=== PATIENT | female | born 2000 | race Caucasian/White ===

== ENCOUNTER 2020-05-21 06:19 | Inpatient (IN) | payer OTHER ==
[2020-05-21] VITALS (9 sets, daily range): BP systolic 118–142; BP diastolic 66–110
[~2020-05-21] VITALS: Ht 175.3 cm; Wt 157.0 kg
[~2020-05-21 06:19] MED LIST: MORPHINE SULFATE 4 MG/ML VIAL. IV PRN
[2020-05-21] MEDS: MORPHINE SULFATE 2 MG/ML VIAL. IV PRN ×7 (08:17→20:44)
[2020-05-21] MEDS: IV NORMAL SALINE 1000ML BAG 1,000 ML IV SCH ×2 (09:00→23:16)
[2020-05-21] MEDS ORDERED: MORPHINE SULFATE 2 MG/ML VIAL. IV PRN (09:00)
[2020-05-21] MEDS ORDERED: SENNOSIDES 8.6 MG TABLET PO PRN ×2 (09:00→12:45)
[2020-05-21] MEDS ORDERED: DEXTROSE 50% 25 GM / 50ML DISP.SYRIN. IV PRN ×2 (09:00→15:45)
[2020-05-21] MEDS ORDERED: ACETAMINOPHEN 325 MG TABLET. PO PRN (09:00)
[2020-05-21] MEDS ORDERED: DOCUSATE SODIUM 100 MG CAPSULE. PO PRN ×2 (09:00→12:45)
[2020-05-21] MEDS ORDERED: ONDANSETRON PF 4 MG/2 ML VIAL. IVP PRN ×3 (09:00→15:45)
[2020-05-21] MEDS ORDERED: ONDANSETRON PF 4 MG/2 ML VIAL. IV PRN (09:30)
[2020-05-21] MEDS ORDERED: LIDOCAINE 1% PF 2 ML VIAL. ID PRN (09:30)
[2020-05-21] MEDS ORDERED: IV RINGERS,LACTATED 1000ML 1,000 ML IV SCH (09:30)
[2020-05-21] MEDS ORDERED: HYDROmorphone 2 MG/ML VIAL IV PRN (09:30)
[2020-05-21] MEDS ORDERED: PROCHLORPERAZINE 10 MG/2 ML VIAL. IV PRN (09:30)
[2020-05-21] MEDS ORDERED: fentaNYL PF VIAL 100 MCG/2 ML VIAL IV PRN ×2 (09:30)
--- NOTE | 2020-05-21 12:41 | PDOC1 ---
History and Physical Date of Service: DOS: DATE: 05/21/20 TIME: 12:37 Chief Complaint: Chief Complain: Fall with ankle fracture History of Present Illness: HPI: 19-year-old female with no past medical history presents with a ankle fracture after a mechanical fall. Patient states that she was running towards her house and she ran up on the back porch and she slipped and fell sideways when her foot got caught on the side of the porch. The porch was made of wood. Denies any LOC. She states that she looked at her foot and it was deformed. There was no bone exposed or active bleeding. Peripheral pulses were intact. Pain is 10 out of 10 at this time. Denies fevers, chest pain, swelling, diarrhea or syncope. Past Medical/Surgical History: PMH/PSH: No pertinent past medical or surgical history Allergies: Allergies: Coded Allergies: No Known Drug Allergies (Unverified , 05/21/20) Family History: Family History: Reviewed with no relevant findings Social History: Social History: Denies alcohol, tobacco or drug abuse. Current Medications: Current Medications Current Medications Morphine Sulfate (Morphine Sulfate) 2 mg PRN Q2HR PRN IV PAIN Last administered on 05/21/20at 11:39; Start 05/21/20 at 08:00 Sennosides (Senna) 17.2 mg PRN BID PRN PO CONSTIPATION; Start 05/21/20 at 09:00 Docusate Sodium (Colace) 100 mg PRN DAILY PRN PO HARD STOOLS; Start 05/21/20 at 09:00 Ondansetron HCl (Zofran) 4 mg PRN Q6HRS PRN IVP NAUSEA/VOMITING; Start 05/21/20 at 09:00 Dextrose (Dextrose 50%-Water Syringe) 12.5 gm PRN Q15MIN PRN IV SEE COMMENTS; Start 05/21/20 at 09:00 Sodium Chloride 1,000 ml @ 100 mls/hr Q10H IV Last administered on 05/21/20at 09:00; Start 05/21/20 at 09:00 Acetaminophen (Tylenol) 650 mg PRN Q4HRS PRN PO TEMP OVER 100.4F OR MILD PAIN; Start 05/21/20 at 09:00 Enoxaparin Sodium (Lovenox 60mg Syringe) 60 mg Q12HR SQ ; Start 05/22/20 at 09:00 Morphine Sulfate (Morphine Sulfate) 1 mg PRN Q1HR PRN IV PAIN; Start 05/21/20 at 09:00 Morphine Sulfate (Morphine Sulfate) 2 mg PRN Q2HR PRN IV SEVERE PAIN 7-10; Start 05/21/20 at 04:00; Stop 05/22/20 at 03:59 Ondansetron HCl (Zofran) 4 mg PRN Q6HRS PRN IV NAUSEA/VOMITING; Start 05/21/20 at 09:30; Stop 05/22/20 at 09:29 Fentanyl Citrate (Fentanyl 2ml Vial) 25 mcg PRN Q5MIN PRN IV MILD PAIN 1-3; Start 05/21/20 at 09:30; Stop 05/22/20 at 09:29 Fentanyl Citrate (Fentanyl 2ml Vial) 50 mcg PRN Q5MIN PRN IV MODERATE TO SEVERE PAIN; Start 05/21/20 at 09:30; Stop 05/22/20 at 09:29 Morphine Sulfate (Morphine Sulfate) 1 mg PRN Q10MIN PRN IV SEVERE PAIN 7-10; Start 05/21/20 at 09:30; Stop 05/22/20 at 09:29 Ringer's Solution 1,000 ml @ 30 mls/hr Q24H IV ; Start 05/21/20 at 09:30; Stop 05/21/20 at 21:29 Lidocaine HCl (Xylocaine-Mpf 1% 2ml Vial) 2 ml PRN 1X PRN ID PRIOR TO IV START; Start 05/21/20 at 09:30; Stop 05/22/20 at 09:29 Hydromorphone HCl (Dilaudid) 0.5 mg PRN Q10MIN PRN IV SEV PAIN, Second choice; Start 05/21/20 at 09:30; Stop 05/22/20 at 09:29 Prochlorperazine Edisylate (Compazine) 5 mg PACU PRN PRN IV NAUSEA, MRX1; Start 05/21/20 at 09:30; Stop 05/22/20 at 09:29 ROS: Review of Systems Review of System REVIEW OF SYSTEMS: GENERAL: Denies weakness SKIN: No bruising, hair changes or rashes. EYES: No blurred, double or loss of vision. NOSE AND THROAT: No history of nosebleeds, hoarseness or sore throat. HEART: No history of palpitations, chest pain or shortness of breath on exertion. LUNGS: Denies cough, hemoptysis, wheezing or shortness of breath. GASTROINTESTINAL: Denies changes in appetite, nausea, vomiting, diarrhea or constipation. GENITOURINARY: No history of frequency, urgency, hesitancy or nocturia. NEUROLOGIC: Denies history of numbness, tingling, or tremor. PSYCHIATRIC: No history of panic, anxiety or depression. ENDOCRINE: No history of heat or cold intolerance, polyuria or polydipsia. EXTREMITIES: Denies joint pain, pain on walking or stiffness. Physical Exam: Vital Signs: Vital Signs Date Time Temp Pulse Resp B/P (MAP) Pulse Ox O2 Delivery O2 Flow Rate FiO2 05/21/20 11:39 20 94 Room Air 05/21/20 07:00 98.4 74 133/83 (100) 98.4 Physcial Exam: GEN: No apparent distress. Alert and oriented HEENT: Normal cephalic, atraumatic, external auditory canals are patent EYES: Extraocular muscles are intact, pupil are equally round and reactive to light and accommodation MUSCULOSKELETAL: Well developed , well nourished, good range of motion ENDOCRINE: No thyromegaly was palpated LYMPHATICS: No cervical chain or axillary nodes were noted HEMATOPOIETIC: No bruising NECK: Supple, no JVD, no thyromegaly was noted LUNGS: Clear to auscultation in all lung alvarez without rhonchi or wheezing HEART: RRR, S!, S2 present. Peripheral pulses intact, no obvious murmurs noted ABDOMEN: Soft, nontender. Positive bowel sounds, no organomegaly, normal bowel sounds EXTREMITIES: Without clubbing, cyanosis, or edema. Pedal pulses intact. Negative Homans sign NEUROLOGIC: Normal speech and tone. A&O x 3, moves all extremities, no obvious focal deficits PSYCHIATRIC: Normal affect, normal mood. Stable SKIN: No ulcerations or rashes, good skin turgor, no jaundice VASCULAR: Good capillary refill, neurovascular bundle appears to be intact Labs: Labs: Pending labs Images: Images Ankle x-ray results in the physical chart Assessment/Plan Assessment/Plan Mechanical fall with left ankle fracture Admit to medicine for further management IV pain control N.p.o. status Rapid Covid Orthopedic consult on-call to the OR for ORIF Lovenox for DVT prophylaxis N.p.o. Full code Discussed with RN and SW Disposition OR Ortho evaluation Surrogate decision maker is the parents Justifications for Admission Other Justification Ankle Fx PAO BAJWA MD May 21, 2020 12:41
[2020-05-21] MEDS ORDERED: fentaNYL PF VIAL 100 MCG/2 ML VIAL ONE ×2 (12:54→13:38)
[2020-05-21] MEDS: fentaNYL PF VIAL 100 MCG/2 ML VIAL IVP PRN ×2 (13:09→13:30)
[2020-05-21] MEDS ORDERED: ceFAZolin SODIUM IV Push 1 GM VIAL. IVP PRN (13:15)
[2020-05-21] MEDS ORDERED: PROPOFOL 10 MG/ML (20ML) VIAL. IV ONE (13:38)
[2020-05-21] MEDS ORDERED: LIDOCAINE 2% PF 5 ML VIAL. ONE (13:38)
[2020-05-21] MEDS ORDERED: LEVO1TAB PO (13:39)
[2020-05-21] MEDS ORDERED: DEXAMETHASONE SOD PHOS 4 MG/ML VIAL ONE (14:31)
[2020-05-21] MEDS ORDERED: ONDANSETRON PF 4 MG/2 ML VIAL. ONE (14:31)
[2020-05-21] MEDS ORDERED: SEVOFLURANE 31 TO 60 MINUTES. IH ONE (14:31)
--- NOTE | 2020-05-21 14:47 | CONS ---
DATE OF CONSULTATION: 05/21/2020 REQUESTING PHYSICIAN: Dr. Fabrice Huitron. REASON FOR CONSULTATION: Left ankle injury. HISTORY OF PRESENT ILLNESS: The patient is a 19-year-old female who fell on ice on her family's backpack and had immediate onset of pain and deformity to the left ankle. She is unable to bear weight and presented to [facility], was noted to have a fracture dislocation of the ankle and was admitted to [place] for further evaluation and treatment. PAST MEDICAL HISTORY: Denies any past medical history. PAST SURGICAL HISTORY: Significant for wisdom teeth removal. ALLERGIES: She has no known drug allergies. FAMILY HISTORY: Denies any significant family history. SOCIAL HISTORY: Denies any tobacco, alcohol or drug use. CURRENT MEDICATIONS: Current medications. REVIEW OF SYSTEMS: She denies any loss of consciousness, any head injury, headache, visual changes, focal weakness, numbness, tingling. Really, injury is only significant for the left ankle pain and deformity that is worse with any movement that has been better since splinted. PHYSICAL EXAMINATION: GENERAL: Pleasant, cooperative 19-year-old female, in no acute distress. HEENT: Atraumatic, normocephalic. MUSCULOSKELETAL: No tenderness on palpation over the neck or back. She has full range of motion of shoulder, elbow and wrist bilaterally with no instability or swelling or tenderness on palpation. Normal alignment, stability, bilateral hips and knees: Left ankle has obvious deformity, but it is swollen and splinted and she can wiggle her toes. Capillary refill distally is intact. She has normal examination of the contralateral right ankle. IMAGING: X-rays show a midshaft fibula fracture on the left and a grossly displaced syndesmotic injury with a lateral talar shift as well as a lateral shift of the distal fibula. IMPRESSION: Left distal fibular shaft fracture with syndesmotic disruption and ankle dislocation. TREATMENT PLAN: I went over with her and her family the normal anatomy of the ankle and the necessity of reestablishing the ankle joint mortise and getting the syndesmotic ligaments reopposed to allow them to heal. I told her that if that is possible with acceptable reduction of the fibular shaft fracture, I would let that heal on its own. If not and it remains now reduced or unstable despite this syndesmotic fixation, we may need to undergo some fixation of the fibula shaft as well. We talked about long-term injury to the ankle and some instability of premature degenerative changes and continued pain or stiffness even under the best of circumstances, surgical complications of possible infection, nonhealing, nerve or blood vessel damage, medical or other anesthetic complications among others and the expected activity restrictions postoperatively. All her questions were answered. She wishes to proceed with surgical evaluation and treatment, which will occur today pending operating room availability. GINA MILLER MD DR: GILBERTO/litzy JOB#: [id number] / [id number]
[2020-05-21] MEDS ORDERED: BUPIVACAINE MPF 0.5% 30 ML VIAL. ONE (14:56)
[2020-05-21] MEDS ORDERED: MORPHINE SULFATE 2 MG/ML VIAL. IVP PRN (15:45)
[2020-05-21] MEDS ORDERED: HYDROcodone/APAP 7.5/325MG 1 TAB TABLET PO PRN (15:45)
[2020-05-21] MEDS ORDERED: fentaNYL PF VIAL 100 MCG/2 ML VIAL IVP PRN (15:45)
[2020-05-21] MEDS ORDERED: POLYETHYLENE GLYCOL 3350 17 GM PACKET. PO PRN (15:45)
[2020-05-21] MEDS ORDERED: oxyCODONE IR 5 MG TABLET PO PRN (15:45)
[2020-05-21] MEDS ORDERED: MORPHINE SULFATE 2 MG/ML VIAL. ONE (15:52)
--- NOTE | 2020-05-21 16:00 | PDOC4 ---
Operative Note Operative Note Date of surgery: 05/21/2020 Preoperative diagnosis: Left ankle subluxation with syndesmotic injury and midshaft fibula fracture Postoperative diagnosis: Same Operative procedure: Operative reduction and fixation of syndesmotic injury left ankle with reduction of midshaft fibula fracture Surgeon: James Anesthesia: General Estimated blood loss: 5 cc Complications: None Operative indications: Please see my dictated orthopedic consultation for detailed operative indications and note that we covered the risks benefits postoperative course of the procedure including possibility of infection nerve or blood vessel damage instability stiffness pain medical or other anesthetic complications among others and we also covered the possibility of fixation of the fibular shaft fracture if necessary she agrees to proceed with surgical evaluation and treatment having given informed consent Operative text: Patient was identified procedure verified patient placed in supine position on the operating table. After adequate amounts of general anesthesia were administered the left lower extremity was prepped and draped in standard sterile fashion with a thigh tourniquet. After timeout was performed patient procedure identified and verified the left lower extremity was exsanguinated by Esmarch bandage tourniquet inflated to 250 mmHg. After checking reduction under fluoroscopic guidance under multiple fluoroscopic views with the ankle joint held reduced and the syndesmosis reduced, the fibular shaft fracture was actually satisfactorily aligned and showed good contact. A small incision was made localized by fluoroscopic guidance and with the syndesmosis and ankle mortise joint held reduced per fluoroscopic guidance a 3.5 mm drill bit was advanced from the distal fibula across the syndesmosis and through the medial tibia and a zip tight ankle syndesmosis Biomet fixation stainless steel implant was used and the implant was flipped after traversing the tibia and verified to be seated well under fluoroscopic guidance and the implant was cinched down with the syndesmosis held in reduction and ankle joint mortise noted to be anatomically reduced under mortise AP and lateral views. Likewise the fibular shaft fracture noted to be in satisfactory alignment and contact. Closure accomplished with subcutaneous Vicryl subcuticular Monocryl Steri-Strips and Mastisol Xeroform was placed over the medial aspect of the ankle where she had some blistering due to tension on the medial skin. A well-padded posterior splint was then placed over sterile dressings toes were noted be warm pink following deflation of the tourniquet patient was returned to recovery room in stable condition having tolerated procedure well GINA MILLER MD May 21, 2020 16:00
[2020-05-21] MEDS: ceFAZolin SODIUM IV Push 1 GM VIAL. IVP SCH (20:48)
[2020-05-21] MEDS: traMADol 50 MG TABLET PO PRN (23:16)
[2020-05-22] MEDS: ceFAZolin SODIUM IV Push 1 GM VIAL. IVP SCH ×2 (02:21→09:42)
[2020-05-22 02:23] VITALS: BP 120/57
[2020-05-22] MEDS: IV NORMAL SALINE 1000ML BAG 1,000 ML IV SCH (05:00)
[2020-05-22] MEDS ORDERED: MAGNESIUM HYDROXIDE 2,400 MG/30 ML ORAL.SUSP. PO PRN (06:00)
[2020-05-22 07:00] VITALS: BP 108/70
[2020-05-22] MEDS: traMADol 50 MG TABLET PO PRN (07:34)
[2020-05-22] MEDS ORDERED: SENNOSIDES/DOCUSATE 8.6/50MG TABLET. PO SCH (09:00)
[2020-05-22 09:40] LABS: BASO % 0 % (0-3); EOS % 0 % (0-3); HEMATOCRIT 35.8 % (36.0-47.0); HEMOGLOBIN 12.2 g/dL (12.0-15.5); LYMPH # 1.4 x10^3/uL (1.0-4.8); LYMPH % 15 % (24-48); MEAN CORPUSCULAR HEMOGLOBIN 31 pg (25-35); MEAN CORPUSCULAR HGB CONC 34 g/dL (31-37); MEAN CORPUSCULAR VOLUME 91 fL (79-100); MONO # 0.7 x10^3/uL (0.0-1.1); MONO % 8 % (0-9); NEUT # 6.8 x10^3/uL (1.8-7.7); NEUT % 76 % (31-73); PLATELET COUNT 273 x10^3/uL (140-400); RED BLOOD COUNT 3.94 x10^6/uL (3.50-5.40); RED CELL DISTRIBUTION WIDTH 12.8 % (11.5-14.5); WHITE BLOOD COUNT 8.9 x10^3/uL (4.0-11.0)
[2020-05-22 09:57] LABS: CALCIUM 9.3 mg/dL (8.5-10.1); GFR 70.7; MAGNESIUM 2.1 mg/dL (1.8-2.4); PHOSPHORUS 3.8 mg/dL (2.6-4.7); POTASSIUM 3.7 mmol/L (3.5-5.1)
--- NOTE | 2020-05-22 10:30 | PDOC ---
PROGRESS NOTES Date of Service DATE: 05/22/20 TIME: 10:28 Subjective Subjective Problems overnight: Left leg and ankle are sore no other complaints Objective Vital Signs Vital Signs Date Time Temp Pulse Resp B/P (MAP) Pulse Ox O2 Delivery O2 Flow Rate FiO2 05/22/20 09:00 19 94 Room Air 05/22/20 07:00 98.5 75 108/70 (83) 98.5 05/21/20 16:13 2.0 Physical Exam Distal capillary refill sensation motor function are all intact normal stability and motion of knee and hip Labs Laboratory Tests Test 05/21/20 08:30 05/21/20 09:05 05/22/20 08:20 SARS-CoV-2 Antigen (Rapid) Negative (NEGATIVE) Coronavirus (PCR) Not detected (Not Detected) White Blood Count 8.9 x10^3/uL (4.0-11.0) Red Blood Count 3.94 x10^6/uL (3.50-5.40) Hemoglobin 12.2 g/dL (12.0-15.5) Hematocrit 35.8 % (36.0-47.0) Mean Corpuscular Volume 91 fL (79-100) Mean Corpuscular Hemoglobin 31 pg (25-35) Mean Corpuscular Hemoglobin Concent 34 g/dL (31-37) Red Cell Distribution Width 12.8 % (11.5-14.5) Platelet Count 273 x10^3/uL (140-400) Neutrophils (%) (Auto) 76 % (31-73) Lymphocytes (%) (Auto) 15 % (24-48) Monocytes (%) (Auto) 8 % (0-9) Eosinophils (%) (Auto) 0 % (0-3) Basophils (%) (Auto) 0 % (0-3) Neutrophils # (Auto) 6.8 x10^3/uL (1.8-7.7) Lymphocytes # (Auto) 1.4 x10^3/uL (1.0-4.8) Monocytes # (Auto) 0.7 x10^3/uL (0.0-1.1) Eosinophils # (Auto) 0.0 x10^3/uL (0.0-0.7) Basophils # (Auto) 0.0 x10^3/uL (0.0-0.2) Sodium Level 142 mmol/L (136-145) Potassium Level 3.7 mmol/L (3.5-5.1) Chloride Level 103 mmol/L (98-107) Carbon Dioxide Level 29 mmol/L (21-32) Anion Gap 10 (6-14) Blood Urea Nitrogen 9 mg/dL (7-20) Creatinine 1.0 mg/dL (0.6-1.0) Estimated GFR (Cockcroft-Gault) 70.7 Glucose Level 100 mg/dL (70-99) Calcium Level 9.3 mg/dL (8.5-10.1) Phosphorus Level 3.8 mg/dL (2.6-4.7) Magnesium Level 2.1 mg/dL (1.8-2.4) Laboratory Tests Test 05/22/20 08:20 White Blood Count 8.9 x10^3/uL (4.0-11.0) Red Blood Count 3.94 x10^6/uL (3.50-5.40) Hemoglobin 12.2 g/dL (12.0-15.5) Hematocrit 35.8 % (36.0-47.0) Mean Corpuscular Volume 91 fL (79-100) Mean Corpuscular Hemoglobin 31 pg (25-35) Mean Corpuscular Hemoglobin Concent 34 g/dL (31-37) Red Cell Distribution Width 12.8 % (11.5-14.5) Platelet Count 273 x10^3/uL (140-400) Neutrophils (%) (Auto) 76 % (31-73) Lymphocytes (%) (Auto) 15 % (24-48) Monocytes (%) (Auto) 8 % (0-9) Eosinophils (%) (Auto) 0 % (0-3) Basophils (%) (Auto) 0 % (0-3) Neutrophils # (Auto) 6.8 x10^3/uL (1.8-7.7) Lymphocytes # (Auto) 1.4 x10^3/uL (1.0-4.8) Monocytes # (Auto) 0.7 x10^3/uL (0.0-1.1) Eosinophils # (Auto) 0.0 x10^3/uL (0.0-0.7) Basophils # (Auto) 0.0 x10^3/uL (0.0-0.2) Sodium Level 142 mmol/L (136-145) Potassium Level 3.7 mmol/L (3.5-5.1) Chloride Level 103 mmol/L (98-107) Carbon Dioxide Level 29 mmol/L (21-32) Anion Gap 10 (6-14) Blood Urea Nitrogen 9 mg/dL (7-20) Creatinine 1.0 mg/dL (0.6-1.0) Estimated GFR (Cockcroft-Gault) 70.7 Glucose Level 100 mg/dL (70-99) Calcium Level 9.3 mg/dL (8.5-10.1) Phosphorus Level 3.8 mg/dL (2.6-4.7) Magnesium Level 2.1 mg/dL (1.8-2.4) Imaging Intraoperative imaging shows anatomic ankle joint mortise reduction with syndesmotic repair and satisfactory fibula midshaft fracture alignment Assessment Assessment POD#1 left ankle syndesmotic repair and reduction fibular shaft fracture Plan Plan of Care She is to remain nonweightbearing mobilize with physical therapy today follow-up in about 10 days with orthopedics and pending good pain control and getting around safely is otherwise stable for discharge from an orthopedic standpoint Justicifation of Admission Dx: Justifications for Admission: Justification of Admission Dx: N/A GINA MILLER MD May 22, 2020 10:30
--- NOTE | 2020-05-22 10:52 | DISCH ---
DISCHARGE INSTRUCTIONS Condition on Discharge Condition on Discharge: Stable Activity After Discharge Activity Instructions for Disc: Resume previous activity Weight Bearing Status after Di: Non weight bearing (On left ankle) Diet after Discharge Diet after Discharge: Regular Contacting the DR. after DC Call your doctor for: If your condition worsens Follow-Up Follow up with: PCP within 2 weeks of discharge Follow Up With: Orthopedics within 10 days of discharge PAO BAJWA MD May 22, 2020 10:52
[2020-05-22 11:00] VITALS: BP 122/74
[2020-05-22] MEDS ORDERED: HYDR-2769 PO ×2 (11:37→11:39)
--- NOTE | 2020-05-22 12:10 | NUR ---
PATIENT UP AND WALKING WITH CRUTCHES AND BY INSTRUCTION OF PHYSICAL THERAPY, PATIENT NOT BEARING ANY WEIGHT ON LEFT LOWER EXTREMITY.
--- NOTE | 2020-05-22 13:05 | NUR ---
DISCHARGE INSTRUCTIONS GIVEN, QUESTIONS AND CONCERNS ANSWERED, PATIENT AND FAMILY MEMBERS AT THE BEDSIDE VERBALIZED UNDERSTANDING OF DISCHARGE INFORMATION INCLUDING TAKING ALL MEDICATIONS INSTRUCTED AND FOLLOWING UP WITH HER PRIMARY PROVIDER AND DR. MILLER IN 10 DAYS,PATIENT ENCOURAGED TO CALL AND SCHEDULE HER APPOINTMENT. ALL PERSONAL BELONGINGS GATHERED AND PLACED IN BAGS FOR DISCHARGE, PATIENT PROVIDED WITH CRUTCHES FROM NURSING SUPERVISOR [employer] BA[employer] PROCESSING PRIOR TO DISCHARGE.
[2020-05-22] MEDS ORDERED: BISACODYL 10 MG SUPP.RECT. PR PRN (16:00)
--- NOTE | 2020-05-30 14:37 | PDOC3 ---
[facility]-Discharge Summary Date of Admission: Date of Admission: May 21, 2020 Date of Discharge: Date of Discharge: May 22, 2020 Discharge Diagnosis: Discharge Diagnosis: Fall with ankle Fx - Operative reduction and fixation of syndesmotic injury left ankle with reduction of midshaft fibula fracture Hospital Course: Hospital Course: 19-year-old female with no past medical history presents with a ankle fracture after a mechanical fall. Patient states that she was running towards her house and she ran up on the back porch and she slipped and fell sideways when her foot got caught on the side of the porch. The porch was made of wood. Denies any LOC. She states that she looked at her foot and it was deformed. There was no bone exposed or active bleeding. Peripheral pulses were intact. Pain is 10 out of 10 at this time. Denies fevers, chest pain, swelling, diarrhea or syncope. Disposition: Disposition/Orders: D/C to Home Activity: Activity: Resume previous activity Diet: Diet: Regular Medications: Home Meds Reported Medications Hydrocodone Bit/Acetaminophen (HYDROCODONE-APAP 10-325 ) 1 Tab Tablet, 1 TAB PO PRN Q4-6HRS PRN for PAIN, TAB 0 Refills 05/22/20 Levonorgestrel-Ethin Estradiol (Larissia-28 Tablet) 1 Each Tablet, 1 TAB PO QAM for prevent pretgnancy for 28 Days, #28 TAB 0 Refills 05/21/20 Scheduled Levonorgestrel-Ethin Estradiol (Larissia-28 Tablet), 1 TAB PO QAM, (Reported) Scheduled PRN Hydrocodone Bit/Acetaminophen (Hydrocodone-Apap 10-325 ), 1 TAB PO PRN Q4- 6HRS PRN for PAIN, (Reported) Total Time: Total Time: Total time spent was 25 minutes in preparing scripts, discharge planning with SW and RN, and preparing this discharge summary. Patient seen and examined on day of discharge. Justicifation of Admission Dx: Justifications for Admission: Justification of Admission Dx: N/A PAO BAJWA MD May 30, 2020 14:37
== END 2020-05-22 13:15 | disposition home or self-care (01) | DRG 493 ==
LOC: 5 NORTH 06:19
PROVIDERS: ADMIT Internal Medicine; ATTEND Internal Medicine
PROC: 0QSK04Z Reposition Left Fibula with Internal Fixation Device, Open Approach (ICD-10-PCS; 2020-05-21)
PROC: 0SSG04Z Reposition Left Ankle Joint with Internal Fixation Device, Open Approach (ICD-10-PCS; principal; 2020-05-21 10:30)
DX: S82.402A Unspecified fracture of shaft of left fibula, initial encounter for closed fracture (principal); Z68.43 Body mass index [BMI] 50.0-59.9, adult; S93.02XA Subluxation of left ankle joint, initial encounter; S93.432A Sprain of tibiofibular ligament of left ankle, initial encounter; W01.0XXA Fall on same level from slipping, tripping and stumbling without subsequent striking against object, initial encounter; Y93.89 Activity, other specified; Y92.89 Other specified places as the place of occurrence of the external cause; Y99.8 Other external cause status; E66.01 Morbid (severe) obesity due to excess calories; Z20.822 Contact with and (suspected) exposure to COVID-19
CPT/HCPCS: 36415; 76000; 80048; 83735; 84100; 85025; 87426; J0690; J1100; J1650; J2270; J2405; J2704; J3010; J3490; J7030; J7120; U0003; 97116-GP; 97535-GO; C1713; G0378

== ENCOUNTER → 2021-01-21 | Outpatient (CLI) | payer OTHER ==
[~2021-01-21] MED LIST changes: +HYDR-2769 PO; +LEVO1TAB PO; -MORPHINE SULFATE 4 MG/ML VIAL. IV PRN
--- NOTE | 2021-01-21 14:54 | KCIC ---
Examination: MRI of the left lower leg without contrast. HISTORY: History of closed nondisplaced oblique fracture of the shaft of the fibula COMPARISON: None Technique: Multiplanar, multisequence MR imaging of the left distal tibia and fibula without contrast FINDINGS: There is mild displaced fracture of the distal shaft of the fibula with no obvious callus formation p robably secondary to nonunion. Mild increased signal or edema identified about the fracture site.The muscle bulk grossly appears unremarkable. Syndesmotic screw identified at distal tibiofibular joint r egion. 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 Electronically signed by: Tye Rodriguez MD (01/21/2021 2:51 PM) [id number]
== END ==
LOC: KCIC MRI 10:06
PROVIDERS: ATTEND Orthopaedic Surgery
DX: S82.435K Nondisplaced oblique fracture of shaft of left fibula, subsequent encounter for closed fracture with nonunion (principal); S82.832A Other fracture of upper and lower end of left fibula, initial encounter for closed fracture; X58.XXXD Exposure to other specified factors, subsequent encounter; X58.XXXA Exposure to other specified factors, initial encounter; Y93.89 Activity, other specified; Y92.89 Other specified places as the place of occurrence of the external cause; Y99.8 Other external cause status
CPT/HCPCS: 73718